=== PATIENT | male | born 1985 | race Caucasian/White ===

== ENCOUNTER 2021-01-01 18:28 | Inpatient (IN) | payer BC ==
[~2021-01-01] VITALS: Ht 182.9 cm; Wt 106.6 kg
[2021-01-01 20:25] LABS: HEMOGLOBIN 15.4 gm/dl (14.0-17.5); RED BLOOD COUNT 4.95 M/UL (4.20-5.50)
[2021-01-01 20:42] LABS: BUN/CREATININE RATIO 8 (0-10)
[2021-01-02 04:26] LABS: HEMOGLOBIN 14.4 gm/dl (14.0-17.5); RED BLOOD COUNT 4.84 M/UL (4.20-5.50)
[2021-01-02 04:35] LABS: WHITE BLOOD COUNT 2.6 K/UL (4.5-11.0)
[2021-01-02 04:56] LABS: BUN/CREATININE RATIO 11 (0-10)
[2021-01-03 03:19] LABS: HEMOGLOBIN 14.9 gm/dl (14.0-17.5); RED BLOOD COUNT 4.8 M/UL (4.20-5.50)
[2021-01-03 03:23] LABS: WHITE BLOOD COUNT 4.4 K/UL (4.5-11.0)
[2021-01-03 04:03] LABS: BUN/CREATININE RATIO 16 (0-10)
[2021-01-04 07:35] LABS: HEMOGLOBIN 14.2 gm/dl (14.0-17.5); RED BLOOD COUNT 4.73 M/UL (4.20-5.50)
[2021-01-04 07:40] LABS: WHITE BLOOD COUNT 5.7 K/UL (4.5-11.0)
[2021-01-04 07:57] LABS: BUN/CREATININE RATIO 15 (0-10)
[2021-01-05 06:07] LABS: HEMOGLOBIN 14.4 gm/dl (14.0-17.5); RED BLOOD COUNT 4.65 M/UL (4.20-5.50); WHITE BLOOD COUNT 5.3 K/UL (4.5-11.0)
[2021-01-05 06:27] LABS: BUN/CREATININE RATIO 16 (0-10)
[2021-01-06 06:06] LABS: HEMOGLOBIN 14.7 gm/dl (14.0-17.5); RED BLOOD COUNT 4.68 M/UL (4.20-5.50); WHITE BLOOD COUNT 6.5 K/UL (4.5-11.0)
[2021-01-06 06:25] LABS: BUN/CREATININE RATIO 18 (0-10)
[2021-01-07 06:38] LABS: HEMOGLOBIN 14.8 gm/dl (14.0-17.5); RED BLOOD COUNT 4.76 M/UL (4.20-5.50); WHITE BLOOD COUNT 7.7 K/UL (4.5-11.0)
[2021-01-07 07:07] LABS: BUN/CREATININE RATIO 19 (0-10)
[2021-01-07] MEDS ORDERED: BUDESONIDE0.5 MG/2 M NEB (10:00)
[2021-01-07] MEDS ORDERED: DECADRON6 MG PO (10:00)
[2021-01-07] MEDS ORDERED: IPRAT-ALBUT 0.5-3 ML NEB (10:00)
[2021-01-07] MEDS ORDERED: LEVOFLOXACIN750 MG PO ×2 (10:00→10:12)
[2021-01-07] MEDS ORDERED: HUMIBID LA TAB600 MG PO (10:00)
[2021-01-07] MEDS ORDERED: PROTONIX 40 MG40 M1 PO (10:00)
[2021-01-07] MEDS ORDERED: ELIQUIS2.5 MG PO (10:23)
== END 2021-01-07 13:18 | disposition home or self-care (01) | DRG 177 ==
LOC: ER1 18:28 → M/S 20:57 → CDU 20:57 → PROG CARE 01-02 15:48 → M/S 01-04 00:52
PROVIDERS: Emergency Medicine; Internal Medicine; ADMIT Internal Medicine
PROC: XW033E5 Introduction of Remdesivir Anti-infective into Peripheral Vein, Percutaneous Approach, New Technology Group 5 (ICD-10-PCS; principal; 2021-01-01)
PROC: 3E0333Z Introduction of Anti-inflammatory into Peripheral Vein, Percutaneous Approach (ICD-10-PCS; 2021-01-01)
PROC: 8E0ZXY6 Isolation (ICD-10-PCS; 2021-01-02)
DX: U07.1 COVID-19 (principal); J12.82 Pneumonia due to coronavirus disease 2019; J96.01 Acute respiratory failure with hypoxia; J15.9 Unspecified bacterial pneumonia; F17.210 Nicotine dependence, cigarettes, uncomplicated; R94.5 Abnormal results of liver function studies; D72.819 Decreased white blood cell count, unspecified; E87.6 Hypokalemia; Z79.01 Long term (current) use of anticoagulants
CPT/HCPCS: 36415; 36600; 71045; 80053; 80076; 82803; 82962; 85025; 85027; 87070; 87205; 93005; 94640; 94664; 94760; 96374; 99285; G0378; J0456; J0696; J1100; J1650; J7030